=== PATIENT | male | born 1995 | race African-American/Black ===

== ENCOUNTER 2016-08-29 19:57 | Emergency (ER) | payer SELFPAY ==
[~2016-08-29] VITALS: Ht 180.3 cm; Wt 63.5 kg
[2016-08-29] MEDS ORDERED: ORPHENADRINE CITRATE 60 MG/2 ML VIAL. IM ONE (20:30)
[2016-08-29] MEDS ORDERED: KETOROLAC TROMETHAMINE 60 MG/2 ML SYRINGE. IM ONE (20:30)
[2016-08-29 20:57] VITALS: BP 136/75
[2016-08-29] MEDS ORDERED: CYCL10TA2 PO (21:01)
[2016-08-29] MEDS ORDERED: IBUP-1060 PO (21:01)
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
== END 2016-08-29 21:29 | disposition home or self-care (01) ==
LOC: ER 19:57
DX: S13.4XXA Sprain of ligaments of cervical spine, initial encounter (principal); S39.012A Strain of muscle, fascia and tendon of lower back, initial encounter; I10 Essential (primary) hypertension; V49.40XA Driver injured in collision with unspecified motor vehicles in traffic accident, initial encounter; Y93.I9 Activity, other involving external motion; Y92.410 Unspecified street and highway as the place of occurrence of the external cause; Y99.8 Other external cause status
CPT/HCPCS: 96372; 99284; J1885; J2360

== ENCOUNTER 2017-07-06 12:41 | Emergency (ER) | payer SELFPAY ==
[~2017-07-06] VITALS: Ht 180.3 cm; Wt 68.0 kg
[~2017-07-06 12:41] MED LIST: CYCL10TA2 PO; IBUP-1060 PO
[2017-07-06 12:55] VITALS: BP 152/87
[2017-07-06] MEDS ORDERED: TRAM50TA PO (12:57)
[2017-07-06] MEDS ORDERED: METH4TAB2 PO (12:57)
--- NOTE | 2017-07-06 12:58 | PHYS DOC ---
Past Medical History Past Medical History: Hypertension Past Surgical History: No Surgical History Alcohol Use: None Drug Use: None Adult General Chief Complaint Chief Complaint: THUMB HPI HPI Patient is a 22 year old male presents the ED complaining of left thumb pain 3 days. Patient states he works at a [employer] company. States he does a lot of repetitive motion with his hand. States he has pain with range of motion. Describes the pain as sharp. Rates the pain as 6 out of 10. Denies trauma, injury, fever, swelling, nausea/vomiting, headache, chest pain or shortness of breath. Review of Systems Review of Systems Constitutional: Denies fever or chills [] Eyes: Denies change in visual acuity, redness, or eye pain [] HENT: Denies nasal congestion or sore throat [] Respiratory: Denies cough or shortness of breath [] Cardiovascular: No additional information not addressed in HPI [] GI: Denies abdominal pain, nausea, vomiting, bloody stools or diarrhea [] : Denies dysuria or hematuria [] Musculoskeletal: Complains of left thumb pain. Denies back pain. [] Integument: Denies rash or skin lesions [] Neurologic: Denies headache, focal weakness or sensory changes [] Endocrine: Denies polyuria or polydipsia [] All other systems were reviewed and found to be within normal limits, except as documented in this note. Allergies Allergies Allergies Coded Allergies Type Severity Reaction Last Updated Verified No Known Drug Allergies 08/29/16 No Physical Exam Physical Exam Constitutional: Well developed, well nourished, no acute distress, non-toxic appearance. [] HENT: Normocephalic, atraumatic Skin: Warm, dry, no erythema, no rash. [] Back: No tenderness, no CVA tenderness. [] Extremities: No bony tenderness. no cyanosis, no clubbing, ROM intact; pain with flexion, no edema. [] Neurologic: Alert and oriented X 3, normal motor function, normal sensory function, no focal deficits noted. [] Psychologic: Affect normal, judgement normal, mood normal. [] Current Patient Data Vital Signs Vital Signs Date Time Temp Pulse Resp B/P (MAP) Pulse Ox O2 Delivery O2 Flow Rate FiO2 07/06/17 12:55 98.0 90 16 152/87 (108) 99 Room Air 98.0 EKG EKG [] Radiology/Procedures Radiology/Procedures [] Course & Med Decision Making Course & Med Decision Making Pertinent Labs and Imaging studies reviewed. (See chart for details) []XR negative for acute injury. Patient has pain with range of motion. Exam findings consistent with tendinitis. Will treat with Medrol Dosepak and analgesics.Discussed symptomatic treatment and at work bracing. Discussed follow -up with orthopedics and reasons to return to the ED. Patient understands and agrees with plan. Dragon Disclaimer Dragon Disclaimer This electronic medical record was generated, in whole or in part, using a voice recognition dictation system. Departure Departure Impression: Primary Impression: Tendonitis Disposition: HOME, SELF-CARE Condition: STABLE Referrals: SHAMIKA SARKAR MD (PCP) ÁNGEL PANTOJA MD Patient Instructions: Tendinitis Scripts Tramadol Hcl (TRAMADOL HCL) 50 Mg Tablet 1 TAB PO PRN Q6HRS, #10 TAB Prov: GOVIND CHAUDHARY 07/06/17 Methylprednisolone (MEDROL) 4 Mg Tab.ds.pk 1 PKG PO UD, #1 PKG Prov: GOVIND CHAUDHARY 07/06/17 GOVIND CHAUDHARY Jul 06, 2017 12:58
--- NOTE | 2017-07-06 13:36 | RAD ---
Left thumb, 3 views, 07/06/2017: History: Thumb pain No fracture or dislocation is identified. No significant arthritic change is evident. IMPRESSION: No left thumb abnormality is detected.
== END 2017-07-06 13:44 | disposition home or self-care (01) ==
LOC: ER 12:41
DX: M77.8 Other enthesopathies, not elsewhere classified (principal); I10 Essential (primary) hypertension
CPT/HCPCS: 73140; 99284